=== PATIENT | female | born 1990 | race Two or more races ===

== ENCOUNTER 2022-03-15 07:31 | Emergency (ER) | payer SELFPAY ==
[~2022-03-15] VITALS: Ht 165.1 cm; Wt 90.7 kg
[2022-03-15] MEDS ORDERED: IBUP-1957 PO (08:46)
--- NOTE | 2022-03-15 09:00 | NUR ---
PT SEEN BY MD AT BEDSIDE
--- NOTE | 2022-03-15 09:07 | NUR ---
Patient discharged to home in stable condition. Written and verbal after care instructions given. Patient verbalizes understanding of instruction.
[2022-03-15 09:08] VITALS: BP 123/70
== END 2022-03-15 09:09 | disposition home or self-care (01) ==
LOC: ER 07:36
DX: S40.021A Contusion of right upper arm, initial encounter (principal); Z98.890 Other specified postprocedural states; Z88.0 Allergy status to penicillin; V09.9XXA Pedestrian injured in unspecified transport accident, initial encounter; Y93.89 Activity, other specified; Y92.89 Other specified places as the place of occurrence of the external cause; Y99.8 Other external cause status
CPT/HCPCS: 73060-TC